=== PATIENT | female | born 2000 | race Caucasian/White ===

== ENCOUNTER 2024-06-22 06:30 | Day surgery (SDC) | payer BC ==
[2024-06-20 15:03] VITALS: BMI 20.3
[2024-06-22] MEDS ORDERED: Ferric Subsulfate 8 ML TOPICAL SOLN ONE (07:49)
[2024-06-22] MEDS ORDERED: PROPOFOL 20 ML ONE (07:57)
[2024-06-22] MEDS ORDERED: Dexamethasone 20 MG/5 ML VIAL ONE (07:57)
[2024-06-22] MEDS ORDERED: Lidocaine 1% PF 5 ML VIAL ONE (07:57)
[2024-06-22] MEDS ORDERED: Fentanyl 100 MCG/2 ML VIAL ONE (07:57)
[2024-06-22] MEDS ORDERED: Ondansetron PF 4 MG/2 ML Vial ONE ×2 (07:57→09:36)
[2024-06-22] MEDS ORDERED: Midazolam HCl 2 mg/2 ml Vial ONE (08:05)
[2024-06-22] MEDS ORDERED: Lidocaine 4% PF 5 ML AMP ONE (08:18)
[2024-06-22] MEDS ORDERED: Meperidine HCl/PF 25 MG (1 mL) VIAL ONE (09:05)
[2024-06-22] MEDS ORDERED: Hydrocodone-Acetamin 15 ML UDCUP ONE (10:12)
== END 2024-06-22 10:50 | disposition home or self-care (01) ==
LOC: CSHSDC 06:30
PROVIDERS: ATTEND Specialist
PROC: 0CTPXZZ Resection of Tonsils, External Approach (ICD-10-PCS; principal; 2024-06-22)
DX: J03.91 Acute recurrent tonsillitis, unspecified (principal); J35.01 Chronic tonsillitis; J34.2 Deviated nasal septum; J34.89 Other specified disorders of nose and nasal sinuses; F32.A Depression, unspecified; F41.9 Anxiety disorder, unspecified; Z79.899 Other long term (current) drug therapy
CPT/HCPCS: 88304; J1100; J2175; J2250; J2405; J2704; J3010